=== PATIENT | female | born 1990 | race Caucasian/White ===

== ENCOUNTER 2017-12-04 19:26 | Emergency (ER) | payer OTHER ==
[2017-12-04 19:37] VITALS: TEMP 97.5; BMI 22.3
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
[2017-12-04] MEDS ORDERED: traMADol HCL 50 MG TABLET PO ONE (20:43)
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
[2017-12-05 03:39] VITALS: BP 149/64; PULSE 88
== END 2017-12-05 03:42 | disposition home or self-care (01) ==
LOC: JERFT 19:26 → JER 19:26
DX: M54.2 Cervicalgia (principal); M25.521 Pain in right elbow; M25.561 Pain in right knee; R07.89 Other chest pain; V03.10XA Pedestrian on foot injured in collision with car, pick-up truck or van in traffic accident, initial encounter; Y92.414 Local residential or business street as the place of occurrence of the external cause; Y93.89 Activity, other specified; Y99.8 Other external cause status
CPT/HCPCS: 71046-TC; 71101-TC-RT; 72070-TC; 72100-TC; 72125-TC; 72131-TC; 73030-TC-RT; 73070-TC-RT; 73560-TC-RT; 73590-TC-RT; 81003; 84703; 99283-25

== ENCOUNTER 2020-08-11 04:58 | Day surgery (SDC) | payer OTHER ==
[2020-07-19 16:34] VITALS: BMI 23.5
--- OUTSIDE RECORDS SUMMARY | 2020-08-11 05:09 | XMS ---
:1990 Author Organization [facility] Care Team Providers Name Role Phone Nawaf Kohler Unavailable Nawaf Kohler Unavailable Re-disclosure Warning The records that you are about to access may contain information from federally- assisted alcohol or drug abuse programs. If such information is present, then the following federally mandated warning applies: This information has been disclosed to you from records protected by federal confidentiality rules (42 CFR part 2). The federal rules prohibit you from making any further disclosure of this information unless further disclosure is expressly permitted by the written consent of the person to whom it pertains or as otherwise permitted by 42 CFR part 2. A general authorization for the release of medical or other information is NOT sufficient for this purpose. The Federal rules restrict any use of the information to criminally investigate or prosecute any alcohol or drug abuse patient.The records that you are about to access may contain highly sensitive health information, the redisclosure of which is protected by Article 27-F of the [facility] Public Health law. If you continue you may haveaccess to information: Regarding HIV / AIDS; Provided by facilities licensed or operated by the [facility] Office of Mental Health; or Provided by the [facility] Office for People With Developmental Disabilities. If such information is present, then the following [facility] mandated warning applies: This information has been disclosed to you from confidential records which are protected by state law. State law prohibits you from making any further disclosure of this information without the specific written consent of the person to whom it pertains, or as otherwise permitted by law. Any unauthorized further disclosure in violation of state law may result in a fine or half-way sentence or both. A general authorization for the release of medical or other information is NOT sufficient authorization for further disclosure. Encounters Encounter Providers Location Date Indications Data Source(s ) Attender: Nawaf 08/01/2020 [facility] ([facility] 12:00:00 AM EDT Medical, ) Office Attender: Nawaf Moisescelso 08/01/2020 12:00:00 AM EDT [facility] ([facility], ) Office Attender: Nawaf De Leoncelso 07/12/2020 12:00:00 AM EDT [facility], ) Office Unlisted evaluation and 09/23/2018 04:00:00 AM EDT [facility] (Mental Health management service [facility]) Insurance Providers Payer name Policy type Policy ID Covered Covered green party's Policy P samia / Coverage green party ID relationship to [facility] type williamson AFFINITY [id number] SP [id number] 600 AFFINITY [id number] SP [id number] 600 AFFINITY [id number] 1 [id number] 600 HEALTH PLAN Problems, Conditions, and Diagnoses Code Display Name Description Problem Type Effective Data Sour ce(s) Dates M79.18 MYALGIA, OTHER MYALGIA, OTHER Problem 08/01/[address] [facility] 12:[facility]:00 AM [facility]) M47.896 Other OTHER Problem 07/12/2020 [facility] ([facility] spondylosis, SPONDYLOSIS, 12:00:00 AM [facility], lumbar region LUMBAR REGION EDT PC) M47.896 Other OTHER Problem 07/12/2020 [facility] ([facility] spondylosis, SPONDYLOSIS, 12:00:00 AM [facility], lumbar region LUMBAR REGION EDT PC) [id number] Social and Social and Complaint 03/30/2019 [facility] Personal History Personal History 04:00:00 AM ( Mental Health Finding (is Finding (is EDT Association of broader (less broader (less [facility]) specific) than) specific) than) [id number] Posttraumatic Posttraumatic Complaint 09/23/2018 [facility] stress disorder stress disorder 04:00:00 AM ([facility] EDT [facility]) Surgeries/Procedures Procedure Description Date Indications Data Source(s) INJECTION SINGLE/STRIP WINDER 08/01/2020 [facility] ([facility] TRIGGER POINT 1/2 MUSCLES 12:00:00 AM EDT Medical, ) Documentation of current 07/12/2020 [facility] ([facility] medications (procedure) 12:00:00 AM EDT edical, ) Documentation of current 07/12/2020 [facility] ([facility] medications (procedure) 12:00:00 AM EDT edical, ) Documentation of current 07/12/2020 [facility] ([facility] medications (procedure) 12:00:00 AM EDT edical, ) OFFICE OUTPATIENT VISIT 07/12/2020 [facility] ([facility] 25 MINUTES 12:00:00 AM EDT Medical, ) Documentation of current 07/12/2020 [facility] ([facility] medications (procedure) 12:00:00 AM EDT edical, ) OFFICE OUTPATIENT VISIT 07/12/2020 [facility] ([facility] 25 MINUTES 12:00:00 AM EDT Medical, ) Results ID Date Data Source [id number] 08/06/2020 09:37:00 AM EDT [facility] Name Value Range Interpretation Description Data Sup porting Code Source(s) Document(s ) SARS [facility] coronavirus 2 RNA This lab was ordered by [facility] and reported by [facility]. Procedure Social History Code Duration Value Status Description Data Source(s ) Smoking 08/01/2020 Marijauna No completed Marijauna No ETOH [facility] (St 12:00:00 AM EDT ETOH No smoking No smoking [facility]) Smoking 08/01/2020 Unknown if ever completed Unknown if ever [facility] (St 12:00:00 AM EDT smoked smoked [facility]) Smoking 07/12/2020 Marijauna No completed Marijauna No ETOH [facility] (St 12:00:00 AM EDT ETOH No smoking No smoking [facility]) Smoking 07/12/2020 Unknown if ever completed Unknown if ever [facility] (St 12:00:00 AM EDT smoked smoked [facility]) Vital Signs ID Date Data Source UNK Name Value Range Interpretation Code Description Data Source(s) Heart rate 96 /min 96 /min [facility] ([facility] , ) Respiratory rate 14 /min 14 /min [facility] ( [facility]) Inhaled oxygen 99 % 99 % [facility] ([facility], ) Body mass index 23.7 kg/m2 23.7 kg/m2 [facility] (S t (BMI) [Ratio] [facility], ) Diastolic blood 60 mm[Hg] 60 mm[Hg] [facility] (S t pressure [facility]) Systolic blood 120 mm[Hg] 120 mm[Hg] [facility] ([facility] , ) Body weight 138 lb 138 lb [facility] ([facility]) Body height 64 in 64 in [facility] ([facility]) Heart rate 81 /min 81 /min [facility] ([facility]) Respiratory rate 14 /min 14 /min [facility] ( [facility]) Inhaled oxygen 99 % 99 % [facility] ([facility], ) Body mass index 23.7 kg/m2 23.7 kg/m2 [facility] (S t (BMI) [Ratio] [facility], ) Diastolic blood 60 mm[Hg] 60 mm[Hg] [facility] (S t pressure [facility]) Systolic blood 130 mm[Hg] 130 mm[Hg] [facility] ([facility]) Body weight 138 lb 138 lb [facility] ([facility]) Body height 64 in 64 in [facility] ([facility]) Heart rate 81 /min 81 /min [facility] ([facility]) Respiratory rate 14 /min 14 /min [facility] ( [facility]) Inhaled oxygen 99 % 99 % [facility] ([facility], ) Body mass index 23.7 kg/m2 23.7 kg/m2 [facility] (S t (BMI) [Ratio] [facility], ) Diastolic blood 60 mm[Hg] 60 mm[Hg] [facility] (S t pressure [facility] , ) Systolic blood 130 mm[Hg] 130 mm[Hg] [facility] ([facility] , ) Body weight 138 lb 138 lb [facility] ([facility]) Body height 64 in 64 in [facility] ([facility])
[2020-08-11] MEDS ORDERED: BUPIVACAINE HCL 50 ML ONE (10:31)
[2020-08-11] MEDS ORDERED: BUPIVACAINE HCL/PF 0.75% 10 ML VIAL ONE (10:31)
[2020-08-11] MEDS ORDERED: LIDOCAINE HCL 1%, 10 MG/ML (20ML VIAL) ONE (10:31)
--- NOTE | 2020-08-11 11:30 | PROC ---
Procedure Note Procedure: Pre procedure Diagnosis: Lumbar Spondylosis Post Procedure Diagnosis: same Anesthesia: local Procedure Performed: Right L3 L4 L5 medial branch radiofrequency Ablation The patient was sterilely prepped and draped in the usual fashion while in the prone position. 1% Lidocaine was used to provide soft tissue anesthesia. Time out was performed. Under fluoroscopic guidance, 10mm active tip radiofrequency probes were successfully directed over the RIGHT L3, L4 and L5 dorsal rami at the intersection of the transverse processes and superior articular processes. Needle tip positions were confirmed with both sensory and motor stimulation, both of which resulted in appropriate responses in the lumbar region, and no reponse in the lower extremities. Lesions were performed at each site at a temperature of 90 degrees Celsius for duration of 90 seconds. Prior to each lesion, 1mL of a cocktail of 4mL of 2% li docaine and 1mL Omnipaque 180 was injected at each site. Following each lesion, 0.5mL of solution containing 1mL dexamethasone and 2mL of .75% bupivacaine, was injected at each site. The patient tolerated the procedure well and there were no complications. The patient was taken to the post procedure recovery area in good condition. Vital signs remained stable before, during, and after the procedure. The patient was given oral and written follow-up instructions. The patient was given a follow up appointment with me in the near future. Nawaf CRUZ
[2020-08-11] MEDS ORDERED: DEXAMETHASONE SOD PHOSPHATE/PF 10 MG/ML SDV ONE (12:28)
[2020-08-11] MEDS ORDERED: LIDOCAINE HCL/PF 2% SDV 5ML VIAL ONE (12:29)
[2020-08-11] MEDS ORDERED: LIDOCAINE HCL 1% PRESERVATIVE FREE - 30ML VIAL IJ ONE (12:46)
[2020-08-11] MEDS ORDERED: IOHEXOL 180 MG/1 ML ML IJ ONE (12:46)
[2020-08-11] MEDS ORDERED: BUPIVACAINE HCL/PF 0.75% 10 ML VIAL NR ONE (12:46)
[2020-08-11] MEDS ORDERED: LIDOCAINE HCL 2% (50ML VIAL) NR ONE ×2 (12:46→13:10)
[2020-08-11 14:21] VITALS: BP 127/81; PULSE 63; TEMP 98.4
== END 2020-08-11 14:30 | disposition home or self-care (01) ==
LOC: JASU-SURG 04:58
PROVIDERS: ATTEND Pain Medicine Pain Medicine
PROC: 3E0T3TZ Introduction of Destructive Agent into Peripheral Nerves and Plexi, Percutaneous Approach (ICD-10-PCS; principal; 2020-08-11 12:00)
DX: M47.816 Spondylosis without myelopathy or radiculopathy, lumbar region (principal)
CPT/HCPCS: 76000-TC-FY